=== PATIENT | female | born 1955 | race American Indian/Alaskan Native ===

== ENCOUNTER 2017-01-29 12:23 | Emergency (ER) | payer MEDICARE, MEDICAID ==
[2017-01-29] MEDS ORDERED: DUONEB 0.5 MG-3 MG/3 ML SOLN IH ONE (15:41)
--- NOTE | 2017-01-29 16:16 | XRay Report ---
CHEST 2 VIEWS INDICATION: Shortness of breath. COMPARISON: None similar. FINDINGS: PA and lateral chest radiographs demonstrate normal cardiomediastinal silhouette. Clear lungs. Multilevel prominent thoracic spine osteophytes. CONCLUSION: No acute disease. Thank you for the opportunity to participate in this patient's care.
[2017-01-29 16:29] LABS: Basophils % (Auto) 0.9 % (0.0-1.8); Eosinophils % (Auto) 1.6 % (0.0-4.3); Hemoglobin 12.8 gm/dl (10.1-14.3); Mean Corpuscular HGB Conc 33 % (30-34); Mean Corpuscular Hemoglobin 29 pg (28-32); Mean Corpuscular Volume 90 fl (79-97); Platelet Count 274 K/mm3 (140-440); Red Blood Count 4.37 M/mm3 (3.65-5.03); Red Cell Distribution Width 14.9 % (13.2-15.2); White Blood Count 7.6 K/mm3 (4.5-11.0)
[2017-01-29 16:47] LABS: Anion Gap 18 mmol/L; Blood Urea Nitrogen 13 mg/dL (7-17); Calcium 9.1 mg/dL (8.4-10.2); Carbon Dioxide 23 mmol/L (22-30); Chloride 108.2 mmol/L (98-107); Glucose 75 mg/dL (65-100); Potassium 3.8 mmol/L (3.6-5.0); Sodium 145 mmol/L (137-145)
[2017-01-29 19:46] VITALS: BP 167/85
--- NOTE | 2017-01-30 12:18 | Emergency Department Report ---
Entered by MEREDITH MEZA, acting as scribe for DIONY RICKS NP. - General Chief Complaint: Upper Respiratory Infection Stated Complaint: SOB Time Seen by Provider: 01/29/17 15:24 Source: patient Mode of arrival: Ambulatory Limitations: No Limitations - History of Present Illness Initial Comments: 61 year old female with a PMHx of HTN and pneumonia presents to the ED c/o shortness of breath that began last night. Patient states that she had pneumonia 10 years ago and was subsequently diagnosed with asthma. She says her current symptoms are similar to her pneumonia episode, but this episode is worse due to shortness of breath. Associated symptoms includes right ear pain, cough with clear/brown sputum, nasal congestion, but she denies chest pain, throat pain, leg pain, nausea, vomiting, fever, and chills. Used nebulizer last night with mild relief to symptoms and she reports that her nebulizer broke last night. She travelled to [place] last month and came down with an upper respiratory infection the next day after her return, which her PCP (Dr. Neumann) prescribed amoxicillin (final pill taken 12/25/2016). NKDA. At this time patient does not look toxic or in any distress. MD Complaint: other (shortness of breath) -: Last night Severity: mild Consistency: constant Improves With: other (Nebulizer) Worsens With: other (walking worsens shortness of breath) Associated Symptoms: nasal congestion, cough (with clear/brown sputum), shortness of breath, ear pain (right), other (Urinary incontinence with cough). denies: fever, chills, headache, rhinorrhea, chest pain, nausea, vomiting - Related Data Previous Rx's Medication Instructions Recorded Last Taken Type ALBUTEROL Inhaler [ProAir HFA 2 puff IH QID PRN #1 inhalation 01/29/17 Unknown Rx Inhaler] Prednisone [predniSONE] 40 mg PO DAILY #5 tab 01/29/17 Unknown Rx Allergies Allergy/AdvReac Type Severity Reaction Status Date / Time No Known Allergies Allergy Verified 01/29/17 12:36 ED Review of Systems Comment: All other systems reviewed and negative Constitutional: other. denies: chills, fever ENT: ear pain (right), congestion. denies: throat pain, other (rhinorrhea) Respiratory: cough (with clear/brown sputum), shortness of breath (worsened with walking). denies: orthopnea, SOB with exertion, SOB at rest Cardiovascular: denies: chest pain, palpitations, dyspnea on exertion Gastrointestinal: denies: nausea, vomiting Genitourinary: other (Urinary incontinence with cough) Musculoskeletal: denies: back pain, joint swelling, arthralgia Skin: denies: rash, lesions Neurological: denies: headache Psychiatric: denies: anxiety, depression ED Past Medical Hx - Past Medical History Previous Medical History?: Yes Hx Hypertension: Yes - Surgical History Additional Surgical History: neck - Social History Smoking Status: Former Smoker Substance Use Type: Alcohol - Medications Home Medications: Home Medications Medication Instructions Recorded Confirmed Last Taken Type ALBUTEROL Inhaler [ProAir HFA 2 puff IH QID PRN #1 inhalation 01/29/17 Unknown Rx Inhaler] Prednisone [predniSONE] 40 mg PO DAILY #5 tab 01/29/17 Unknown Rx ED Physical Exam - General Limitations: No Limitations General appearance: alert, in no apparent distress - Head Head exam: Present: atraumatic, normocephalic - Eye Eye exam: Present: normal appearance, PERRL, EOMI Pupils: Present: normal accommodation - ENT ENT exam: Present: normal exam, mucous membranes moist, TM's normal bilaterally - Neck Neck exam: Present: normal inspection, full ROM. Absent: tenderness, lymphadenopathy - Respiratory Respiratory exam: Present: wheezes (upper lower lobes bilaterally). Absent: respiratory distress, rales, rhonchi, stridor, chest wall tenderness, accessory muscle use, prolonged expiratory - Expanded Respiratory Exam Expanded Location: Wheezes: Right, Left, Upper, Lower - Cardiovascular Cardiovascular Exam: Present: regular rate, normal rhythm. Absent: systolic murmur, rubs, gallop - GI/Abdominal GI/Abdominal exam: Present: soft. Absent: distended, tenderness, guarding, rebound - Extremities Exam Extremities exam: Present: normal inspection, full ROM. Absent: tenderness - Back Exam Back exam: Present: normal inspection, full ROM - Neurological Exam Neurological exam: Present: alert, oriented X3 - Psychiatric Psychiatric exam: Present: normal affect, normal mood - Skin Skin exam: Present: warm, dry, intact ED Course Vital Signs 01/29/17 01/29/17 01/29/17 12:31 16:08 16:10 Temperature 98.4 F Pulse Rate 97 H 97 H Pulse Rate [ 82 Bilateral Throughout] Respiratory 18 20 Rate Respiratory 18 Rate [Bilateral Throughout] Blood Pressure 162/83 Blood Pressure 131/78 [Right] O2 Sat by Pulse 99 100 Oximetry 01/29/17 01/29/17 01/29/17 16:24 17:52 19:45 Temperature 98.6 F Pulse Rate 85 82 Pulse Rate [ 98 H Bilateral Throughout] Respiratory 20 Rate Respiratory 18 Rate [Bilateral Throughout] Blood Pressure Blood Pressure 167/85 [Right] O2 Sat by Pulse 96 Oximetry 01/29/17 19:46 Temperature Pulse Rate Pulse Rate [ Bilateral Throughout] Respiratory 20 Rate Respiratory Rate [Bilateral Throughout] Blood Pressure Blood Pressure [Right] O2 Sat by Pulse 96 Oximetry Vital Signs 01/29/17 01/29/17 01/29/17 12:31 16:08 16:10 Temperature 98.4 F Pulse Rate 97 H 97 H Pulse Rate [ 82 Bilateral Throughout] Respiratory 18 20 Rate Respiratory 18 Rate [Bilateral Throughout] Blood Pressure 162/83 Blood Pressure 131/78 [Right] O2 Sat by Pulse 99 100 Oximetry 01/29/17 01/29/17 16:24 17:52 Temperature Pulse Rate 85 Pulse Rate [ 98 H Bilateral Throughout] Respiratory Rate Respiratory 18 Rate [Bilateral Throughout] Blood Pressure Blood Pressure [Right] O2 Sat by Pulse Oximetry - Reevaluation(s) Reevaluation #1: 01/29/17 17:52 This time the patient stated he feels much better. No shortness of breath, chest pain, or wheezing. Patient walked about 30 steps with no signs of shortness of breath or dizziness. Reevaluation #2: 01/29/17 18:52 Patient has no sign of distress at this time. Explained that I am discussing with her product developer about her EKG findings. Reevaluation #3: 01/29/17 19:[address] Grigsby about patients EKG findings. Dr. Grigsby is aware of PMX. Stated to follow-up with him in 2-3 days ED Medical Decision Making - Lab Data Result diagrams: 01/29/17 16:06 01/29/17 16:06 - Medical Decision Making Ed course: This 61-year-old female presents with shortness of breath. 1-patient with ischemic and toxic appearance or in any distress. 2- x-ray results show: No acute disease. 3- EKG shows left bundle branch block. Patient stated is aware of the EKG results and has a product developer that she sees constantly. 4- patient received Solu-Medrol. Patient stated he feels much better, does not complain of shortness of breath. 5- patient received Duoneb. Patient states feels much better. 6- repeat EKG and troponin level. 7-I had patient walk about 30 steps. Patient denies any chest pain, shortness of breath, or wheezing. 8- Dr. Nicole is aware of patient and d/c plan. 9- PERC rule cannot be used to rule out PE due to age. Wells Criteria 0.0 points low risk group 1.3% chance of PE in an ED population. 10-HEART score: 2 points Low score 0.9%-1.7% risk of adverse cardiac event. 11- I spoke with patient product developer Dr. Grigsby at [phone]. Dr. Grigsby stated is aware of patient past medical hx and to have the patient follow-up in 2-[address] Grigsby. 11- at time of discharge patient does not seem in any distress. Understands the treatment plan and discharge plan. No further questions. ED Disposition Clinical Impression: Bronchitis Disposition: DISCHARGED TO HOME OR SELFCARE Is pt being admited?: No Does the pt Need Aspirin: No Condition: Stable Instructions: Acute Bronchitis (ED) Additional Instructions: Please follow up with a product developer in ANJANA days. Please report back to emergency room if symptoms of chest pain, shortness of breath, difficulty breathing, numbness or tingling sensation, or headache. Please follow up with Dr. Perry (Pulmonolgy) Prescriptions: ALBUTEROL Inhaler [ProAir HFA Inhaler] 2 puff IH QID PRN #1 inhalation PRN Reason: Shortness Of Breath Prednisone [predniSONE] 40 mg PO DAILY #5 tab Referrals: PRIMARY CARE,MD [Primary Care Provider] - 3-5 Days DARLIN GRIGSBY MD [Staff Physician] - 2-3 Days TANMAY PERRY MD [Staff Physician] - 2-3 Days This documentation as recorded by the SUSANA yun JASMINE,accurately reflects the service I personally performed and the decisions made by ,DIONY RICKS, ADAN.
== END 2017-01-29 19:49 | disposition home or self-care (01) ==
LOC: ED 12:23
DX: J40 Bronchitis, not specified as acute or chronic (principal); I10 Essential (primary) hypertension; Z87.891 Personal history of nicotine dependence
CPT/HCPCS: 36415; 71020; 80048; 84484; 85025; 93005; 93010; 94640; 96372; 99284; J2930